=== PATIENT | male | born 1960 | race Caucasian/White ===

== ENCOUNTER 2022-03-12 11:56 | Outpatient (CLI) | payer BC, SELFPAY ==
[2022-03-12 12:26] LABS: Chloride* 104 mmol/L (96-114); Potassium* 4.7 mmol/L (3.6-5.1); Sodium* 140 mmol/L (135-149)
[2022-03-12 12:28] LABS: Carbon Dioxide* 30 mmol/L (20-32); Cholesterol* 157 mg/dL (90-199); Creatinine* 1.4 mg/dL (0.5-1.5); Estimated Glomerular Filt Rate 58 ml/min
[2022-03-12 12:29] LABS: Blood Urea Nitrogen* 21 mg/dL (7-30); Calcium* 9.4 mg/dL (8.4-10.6); Glucose* 91 mg/dL (60-115); HDL Cholesterol* 57 mg/dL (>=40); LDL Cholesterol Calculated 77 mg/dL (<100); Triglycerides* 113 mg/dL (40-149)
== END 2022-03-12 11:57 | disposition home or self-care (01) ==
PROVIDERS: PCP Family Medicine; Visit Provider Internal Medicine
DX: E78.5 Hyperlipidemia, unspecified (principal); I10 Essential (primary) hypertension
CPT/HCPCS: 80048; 80061

== ENCOUNTER 2022-10-27 18:12 | Emergency (ER) | payer BC, SELFPAY ==
[2022-10-27 18:22] VITALS: BP 131/84; PULSE 90; RESP 16; TEMP 36.6; O2SAT 97; BMI 54.2
--- NOTE | 2022-10-27 18:30 | CRLHL7_ITS ---
For Patients: As a result of the Cures Act, medical imaging exams and procedure reports are released immediately into your electronic medical record. You may view this report before your referring provider. If you have questions, please contact your health care provider. Indication: Trauma Technique: Right elbow 3 views Comparison: None Findings: No acute displaced fracture or malalignment. No soft tissue swelling. Joint spaces are maintained. Bony mineralization is age appropriate. Impression: No discrete acute displaced fracture. Dictated by Jaden James MD @ 10/27/2022 7:52:32 PM (Electronically Signed)
--- NOTE | 2022-10-27 18:32 | ED.UPPEXIN ---
HPI - Extremity Injury (Upper) General Chief Complaint: Extremity Pain/Injury, Upper Stated Complaint: R arm injury Time Seen by Provider: 10/27/22 18:14 History of Present Illness HPI narrative: This 61-year-old male comes in with a injury to his right upper extremity. He states that he was ambulating on some stairs at work and misstepped. He was holding onto a railing and states that he twisted his arm and felt a pop near his elbow. He does not report any other injury. He did not fall. He has pain when supinating his right hand and with flexion and extension of his elbow. Related Data Home Medications Medication Instructions Recorded Confirmed biotin 1 mg capsule 1 mg PO DAILY 09/01/21 04/17/22 multivitamin 1 tab PO QAM 09/01/21 04/17/22 piroxicam 20 mg capsule 20 mg PO DAILY 09/01/21 04/17/22 psyllium husk 3.4 gram/5.4 gram 1 tbsp PO ONCE 09/01/21 04/17/22 oral powder (Metamucil) acetaminophen 650 mg 1,300 mg PO Q6H 04/17/22 04/17/22 tablet,extended release ibuprofen 800 mg tablet 800 mg PO TID 04/17/22 04/17/22 Previous Rx's Medication Instructions Recorded bupropion HCl 300 mg 24 hr tablet, 300 mg PO DAILY #90 tabs 04/17/22 extended release celecoxib 200 mg capsule (Celebrex) 200 mg PO QDAY #90 caps 04/17/22 lisinopril 20 1 tab PO DAILY #90 tabs 04/17/22 mg-hydrochlorothiazide 25 mg tablet rosuvastatin 20 mg tablet 20 mg PO DAILY #90 tabs 04/17/22 pantoprazole 40 mg tablet,delayed 40 mg PO DAILY #90 tabs 08/15/22 release peg 3350-electrolytes 236 240 ml PO Q10M #4,000 mL 10/16/22 gram-22.74 gram-6.74 gram-5.86 gram solution (Golytely) Allergies Allergy/AdvReac Type Severity Reaction Status Date / Time No Known Drug Allergies Allergy Verified 04/17/22 15:33 Review of Systems Status of ROS: Reports: 10 or more systems reviewed and unremarkable except as noted in History and below Narrative: Constitutional: No fevers, no weight gain or loss. Eyes: No discharge. No vision changes. HENT: No congestion, no sore throat, no ear pain. Cardiovascular: No chest pain, no palpitations. Respiratory: No shortness of breath, no wheezes, no cough. Gastrointestinal: No abdominal pain, no vomiting, no diarrhea. Genitourinary: No dysuria, no hematuria. Musculoskeletal: Decreased range of motion of the right elbow with tenderness in the anterior aspect. Skin: No rashes, no pruritis. Neurological: No dizziness, weakness, sensory change, speech change. Endo/Heme/Allergies: No bruising or bleeding. No polydipsia. Pysch: no suicidality, no anxiety, no insomnia. All other systems reviewed and are negative. [facility] Surgical History (Updated 04/17/22 @ 15:23 by Re Logan MD) Status post arthroscopy of left knee ?Z98.890 - Other specified postprocedural states (ICD-10) Status post total knee replacement, right ?Z96.651 - Presence of right artificial knee joint (ICD-10) History of vasectomy (05/21/11) ?Z98.52 - Vasectomy status (ICD-10) History of umbilical hernia repair (2005) ?Z98.890 - Other specified postprocedural states (ICD-10) ?Z87.19 - Personal history of other diseases of the digestive system (ICD-10) History of total knee replacement (2017) ?Z96.659 - Presence of unspecified artificial knee joint (ICD-10) Acquired left flat foot (2017) ?M21.42 - Flat foot [pes planus] (acquired), left foot (ICD-10) Social History Smoking Status: Never smoker Non-prescribed substance use: denies use Little interest or pleasure in doing things: not at all Feeling down, depressed, or hopeless: not at all Exam Narrative: Exam Narrative: Constitutional: Well-developed, well-nourished, no acute distress. HEENT: Normocephalic, atraumatic. Neck: Normal range of motion. Nontender. Supple. Heart: Regular. No murmurs. Normal rate. Intact distal pulses. Lungs: Clear to auscultation. No chest discomfort. No wheezes, rhonchi, or rales. Abdomen: Normal bowel sounds. Nontender. No rebound tenderness. Genitalia: Deferred. Back: No midline tenderness. Normal range of motion. Extremities: Decreased range of motion of the right elbow. He has tenderness when palpating along the biceps musculature and tendon. Pain is increased when supinating his forearm. A step-off of the biceps tendon is palpable suggesting rupture. Skin: Intact. No rash. Warm. No erythema or pallor. Neurologic: No altered sensation. No weakness. Alert and oriented. Psychiatric: No suicidality. No anxiety or depression. No insomnia. Nursing notes and vitals signs are reviewed. Const: Vital Signs, click to edit/add: Vital Signs - 24 hr 10/27/22 18:22 Temperature 97.8 F Pulse Rate [Right Pulse Oximeter] 90 Respiratory Rate 16 Blood Pressure [Ri ght Upper Arm] 131/84 Pulse Oximetry 97 Oxygen Delivery Me thod Room Air Course Vital Signs Vital signs: Initial Vital Signs Temperature 97.8 F 10/27/22 18:22 Temperature Source Temporal Artery Scan 10/27/22 18:22 Pulse Rate 90 10/27/22 18:22 Pulse Rhythm Regular 10/27/22 18:22 Respiratory Rate 16 10/27/22 18:22 Blood Pressure 131/84 10/27/22 18:22 Blood Pressure Mean 99 10/27/22 18:22 Blood Pressure Position Sitting 10/27/22 18:22 Pulse Oximetry 97 10/27/22 18:22 Oxygen Delivery Method Room Air 10/27/22 18:22 Vital Signs Temperature 97.8 F 10/27/22 18:22 Pulse Rate 90 10/27/22 18:22 Respiratory Rate 16 10/27/22 18:22 Blood Pressure 131/84 10/27/22 18:22 Pulse Oximetry 97 10/27/22 18:22 Oxygen Delivery Method Room Air 10/27/22 18:22 Temperature 97.8 F 10/27/22 18:22 Pulse Rate 90 10/27/22 18:22 Respiratory Rate 16 10/27/22 18:22 Blood Pressure 131/84 10/27/22 18:22 Pulse Oximetry 97 10/27/22 18:22 Oxygen Delivery Method Room Air 10/27/22 18:22 MDM - Extremity Injury (Upper) MDM Narrative Medical decision making narrative: This patient comes in with elbow injury as described above. This is suspicious for a biceps tendon rupture as he had strain of this muscle and attempting to catch himself as he was holding onto a railing ambulating some steps. He felt a pop in his arm and has a palpable step-off near his elbow where the biceps tendon is located. X-ray imaging is obtained. By my review this shows no sign of fracture or dislocation. This patient was placed in a sling and he received an intramuscular injection of morphine 10 mg. I did speak with the orthopedic physician assistant golf coach precision lens centerer and edger who will give him a phone call for ongoing plans. The patient received prescriptions for Commerce and Toradol. Discharge Plan Discharge Clinical Impression: Biceps tendon rupture Patient Disposition: Home, Self-Care Condition: Unchanged Additional Instructions: Wear sling and use medications as needed and directed. Someone from orthopedic clinic will give a call but in case this does not happen on Saturday, call [phone] arrange follow-up appointment. Prescriptions: No Action biotin 1 mg capsule 1 mg PO DAILY Metamucil 3.4 gram/5.4 gram powder 1 tbsp PO ONCE Rx Instructions: mix into at least 8 oz of water or juice before administering multivitamin Tablet 1 tab PO QAM piroxicam 20 mg capsule 20 mg PO DAILY ibuprofen 800 mg tablet 800 mg PO TID acetaminophen 650 mg tablet extended release 1,300 mg PO Q6H rosuvastatin 20 mg tablet 20 mg PO DAILY Qty: 90 3RF lisinopril-hydrochlorothiazide 20-25 mg tablet 1 tab PO DAILY Qty: 90 3RF bupropion HCl 300 mg tablet extended release 24 hr 300 mg PO DAILY Qty: 90 3RF celecoxib [Celebrex] 200 mg capsule 200 mg PO QDAY Qty: 90 3RF pantoprazole 40 mg tablet,delayed release (DR/EC) 40 mg PO DAILY Qty: 90 2RF peg 3350-electrolytes [Golytely] 236-22.74-6.74 -5.86 gram recon soln 240 ml PO Q10M Qty: 4000 0RF Rx Instructions: until fecal effluent is clear Follow Up/Referrals: Jaden Walker MD [Staff Physician] - Stand Alone Forms: [facility]
--- NOTE | 2022-10-27 18:53 | ED.NURSE ---
Nurse from [facility], Karey Hough, called requesting an update on patient's injury. After receiving verbal consent to share pertinent information, called Karey back at [phone]. It went to voicemail. He had been texting her in the room already.
[2022-10-27] MEDS: MORPHINE 10 MG/ML inj IM (19:42)
[2022-10-27 19:56] VITALS: BP 130/85; PULSE 78; RESP 16; TEMP 36.4; O2SAT 95
== END 2022-10-27 19:57 | disposition home or self-care (01) ==
PROVIDERS: Emergency Provider Emergency Medicine Emergency Medical Services; PCP Internal Medicine
DX: S46.211A Strain of muscle, fascia and tendon of other parts of biceps, right arm, initial encounter (principal); W10.9XXA Fall (on) (from) unspecified stairs and steps, initial encounter
CPT/HCPCS: 73080; 96372; 99284; J2270

== ENCOUNTER 2022-11-16 09:41 | Outpatient (CLI) | payer BC, SELFPAY ==
--- NOTE | 2022-11-16 10:36 | W.ANESCHARGE ---
Anesthesia Charges Start Date/Time Anesthesia Start Date: 11/16/22 Anesthesia Start Time: 10:55 Stop Date/Time Anesthesia Stop Date: 11/16/22 Anesthesia Stop Time: 11:18
--- NOTE | 2022-11-16 11:21 | W.ANESCHARGE ---
Anesthesia Charges Start Date/Time Anesthesia Start Date: 11/16/22 Anesthesia Start Time: 10:55 Stop Date/Time Anesthesia Stop Date: 11/16/22 Anesthesia Stop Time: 11:18
== END 2022-11-16 09:42 | disposition home or self-care (01) ==
LOC: OP CLINIC 09:42
PROVIDERS: PCP Internal Medicine; Visit Provider Internal Medicine
DX: R19.5 Other fecal abnormalities (principal); K57.30 Diverticulosis of large intestine without perforation or abscess without bleeding
CPT/HCPCS: 00811; 00812; 45378; J2704

== ENCOUNTER 2022-11-19 09:01 | Outpatient (CLI) | payer BC, SELFPAY ==
--- NOTE | 2022-11-19 09:15 | MR_ITS ---
[address] [address] Phone:?[phone] Fax:?[phone] Referring Physician Information: Sebas Umanzor [address] [facility] [address] Phone:?[phone] Fax:?[phone] Patient:?Jaden Tejeda D.O.B:?1960 Sex:?Male Phone:?[phone] [facility] MRN:?[id number] Exam Date:?11/19/2022 EXAM: MRI EXAMINATION OF THE RIGHT ELBOW CLINICAL INFORMATION: Status post fall with injury. Right elbow pain. Evaluate distal biceps injury. TECHNICAL INFORMATION: Axial, sagittal and coronal PD and T2. Coronal T1 and STIR images acquired. No prior studies for comparison. INTERPRETATION: Bones, joint and osteochondral surfaces: There is a tiny elbow joint effusion. No discrete loose body is seen. No evidence for an occult fracture or osseous contusion. No discrete osteochondral lesion is seen. No other abnormal marrow edema pattern identified. Tendons: There is an acute or subacute appearance of injury and complete disruption of the expected biceps brachii tendon insertion. Tendon retraction is measuring approximately 2.5 cm. The torn tendon fibers are situated distal to the level of the elbow joint line. Moderate associated soft tissue fluid and edema signal. The common flexor origin at the medial humeral epicondyle is intact. Tendinopathy involves the common extensor tendon origin with low to moderate grade deep fiber partial tearing involving the central one third of the tendon origin. Ligaments: The ulnar collateral ligament is intact without evidence of acute sprain or tear. The radial collateral and lateral ulnar collateral ligaments appear grossly intact. Nerves: The ulnar nerve appears unremarkable coursing past the elbow and through the cubital tunnel. CONCLUSION: 1. Acute or subacute injury with complete disruption of the expected biceps brachii tendon insertion. Retraction measures approximately 2.5 cm, with torn tendon fibers remaining situated distal to the level of the elbow joint line. Moderate associated soft tissue hemorrhage and inflammation. 2. Tendinopathy involves the common extensor tendon origin. Low to moderate grade deep fiber partial-thickness tear involves the central one third of the tendon origin. 3. No occult fracture, osseous contusion or osteochondral lesion. 4. There is a tiny elbow joint effusion. KES Electronically signed on 11/19/2022 1:51:00 PM by Nioks Ahumada M.D.
== END 2022-11-19 09:02 | disposition home or self-care (01) ==
PROVIDERS: PCP Internal Medicine; Visit Provider Physician Assistant
DX: M25.521 Pain in right elbow (principal); M25.421 Effusion, right elbow
CPT/HCPCS: 73221

== ENCOUNTER 2022-11-26 15:08 | Outpatient (CLI) | payer BC, SELFPAY | END 2022-11-26 15:09 | disposition home or self-care (01) | LOC: NFLDREF 15:08 | PROVIDERS: PCP Internal Medicine; Visit Provider Internal Medicine | DX: Z01.818 Encounter for other preprocedural examination (principal); I10 Essential (primary) hypertension | CPT/HCPCS: 80048 ==

== ENCOUNTER 2022-12-04 08:01 | Day surgery (SDC) | payer BC, SELFPAY ==
[2022-12-04] VITALS (13 sets, daily range): BP systolic 112–172; BP diastolic 58–85; PULSE 70–81; RESP 16–20; TEMP 36.4–36.6; O2SAT 92–98; BMI 53.5
[2022-12-04] MEDS: OXYCODONE (CR) 10 MG TAB.ER.12H PO (08:20)
[2022-12-04] MEDS: ACETAMINOPHEN 500 MG TABLET 1000 MG PO (08:20)
[2022-12-04] MEDS: CELECOXIB 200 MG CAPSULE PO (08:20)
[2022-12-04] MEDS: LACTATED RINGERS 1000 ML 1,000 ML 100 ML IV ×2 (08:30→10:19)
[2022-12-04] MEDS: SODIUM CHLORIDE 0.9 % (FLUSH) 10 ML SYRINGE IVF (08:30)
[2022-12-04] MEDS: MIDAZOLAM HCL 1 MG/ML inj IVP (08:55)
[2022-12-04] MEDS: fentaNYL 100 MCG/2 ML inj IVP (08:55)
--- NOTE | 2022-12-04 09:07 | SUR.PREOP ---
TIME?OUT:?0855 PT/José Miguel MARAVILLA RN/Cristiano CONDE MDA?VERIFICATION?OF?SURGICAL?SITE,?PROCEDURE,?AND?CONSENT OBTAINED?PRIOR?TO?INVASIVE?PROCEDURE.
[2022-12-04] MEDS: CEFAZOLIN 1 GM inj 3 GM IVP (09:36)
--- NOTE | 2022-12-04 09:53 | CRLHL7_ITS ---
For Patients: As a result of the Cures Act, medical imaging exams and procedure reports are released immediately into your electronic medical record. You may view this report before your referring provider. If you have questions, please contact your health care provider. Indication: INTRA OP BUTTON PLACEMENT EXAM Technique: Two fluoroscopic images of the right elbow. Fluoroscopic time 2.3 seconds. IMPRESSION: Fluoroscopic guidance for biceps tendon repair. Dictated by Jaden Zhang MD @ 12/04/2022 11:10:25 AM (Electronically Signed)
--- NOTE | 2022-12-04 10:25 | P.NB_ITS ---
Nerve Block Nerve Block Time Seen by Provider: 09:00 Date Seen: 12/04/22 Type of block requested by surgeon for post-operative analgesia: axillary Side: right Time out performed: Yes Verification of patient name: Yes Verification of date of : Yes Site marking: site marked Name of person performing procedure: Joseph Continuous monitoring Was continuous monitoring of O2 sat, B/P, monitoring manager, recorded every 15 minutes?: Yes Procedure Checklist: sterile prep, needles and gloves Ultrasound guided. Images saved: Yes Medications given in 5ml increments after negative aspiration: Ropivicaine %: 0.5 mL: 30 Needle gauge: 22 Decadron (mg): 10 Patient tolerated procedure well: Yes Additional comments: Needle noted adjacent to nerve Block Charges Block Charge (with Pro Fee): Brachial Plexus Use of Ultrasound Machine for Block: Yes- US Guidance/pain block
--- NOTE | 2022-12-04 10:26 | W.ANESCHARGE ---
Anesthesia Charges Start Date/Time Anesthesia Start Date: 12/04/22 Anesthesia Start Time: 09:08 Stop Date/Time Anesthesia Stop Date: 12/04/22 Anesthesia Stop Time: 11:03
--- NOTE | 2022-12-04 10:40 | PM.ORPRC ---
Procedure Note Date of procedure: 12/04/22 Procedure: PREOPERATIVE DIAGNOSIS: Right upper extremity distal biceps tendon tear POSTOPERATIVE DIAGNOSIS: Right upper extremity distal biceps tendon tear NAME OF OPERATION: Primary Repair SURGEON: Hayder Alves MD QUALITY CONTROL ASSISTANT: Fozia Kowalski PA-C ANESTHESIA: General endotracheal ESTIMATED BLOOD LOSS: 5 mL. COMPLICATIONS: None. SPECIMENS: None. DRAINS: None. PREOPERATIVE ANTIBIOTICS: Ancef 3 grams INDICATIONS: The patient is a 62-year-old male with a history of a right elbow injury, sustaining full-thickness disruption of the distal biceps tendon. Operative intervention was recommended. The risks, benefits and expected outcomes were discussed in detail. These included but were not limited to: Infection, bleeding, injury to blood vessel or nerve, venous thromboembolism. All questions were answered to their satisfaction. Use of an physicians assistant was necessary throughout the case for patient positioning and safety, soft tissue retraction and closure. PROCEDURE: General anesthesia was administered. The patient was placed supine on the operating room table. The right upper extremity was prepped and draped in the usual sterile fashion. The limb was exsanguinated with the Keshawn bandage. The pneumatic tourniquet was inflated to 250 mm of mercury. A transverse incision was made 4 cm distal to the antecubital crease. Subcutaneous dissection was taken with tenotomy scissors to the antecubital veins which were carefully preserved throughout the case. The lateral antebrachial cutaneous nerve was not seen during the case. There was a tube of peritenon which was intact all the way down to the radial tuberosity. This was followed down to the radial tuberosity. It was resected off of the insertion. The Lempert rongeur and the joker elevator were used to debride the radial tuberosity. Dissection was carried proximally, to the biceps tendon. We debrided the distal end of biceps tendon and placed a whipstitch with #2 FiberWire suture. The forearm was placed in maximum supination. We drilled a bicortical guide pin through the radial tuberosity. We drilled a 10 mm unicortical socket. We placed the button on the limbs of the whipstitch and advanced it into the socket through the deep guide pin hole and flipped it on the far cortex of proximal radius. Its placement was confirmed with the image intensifier. We kept the forearm in maximum supination and flexed the elbow while retracting the limbs of the suture. This advanced the distal biceps tendon into the socket to a depth of 10 mm. We placed 1 limb of the suture through the tendon and tied several knots over the top of the tendon. We placed an 7 mm x 10 mm peek interference screw over the radial side of the tendon, pushing it ulnarly. We tied several knots over the top of the screw. This provides an excellent repair of the distal biceps tendon to its anatomic insertion. The wound was irrigated with normal saline. The wound was infiltrated with 0.25% Marcaine without epinephrine. Subcutaneous tissues were closed with a 2-0 Vicryl. Skin was closed with a 3-0 Monocryl in a subcuticular fashion. A dry dressing and sling were applied. Sponge and needle counts were correct x2. The patient tolerated the procedure well. There were no apparent complications. They were carefully transferred to the hospital bed and taken to the postanesthesia care unit in satisfactory condition. PLAN: The patient will be discharged to home. They will follow up in the office next week for a wound check and an AP and lateral view of the elbow, prior to being seen, in preparation for occupational therapy. We will begin gentle active range of motion immediately.
--- NOTE | 2022-12-04 11:09 | W.ANESCHARGE ---
Anesthesia Charges Start Date/Time Anesthesia Start Date: 12/04/22 Anesthesia Start Time: 09:08 Stop Date/Time Anesthesia Stop Date: 12/04/22 Anesthesia Stop Time: 11:03
--- NOTE | 2022-12-04 11:32 | SUR.PHASEI ---
patient met discharge criteria per anesthesia
== END 2022-12-04 12:20 | disposition home or self-care (01) ==
PROVIDERS: PCP Internal Medicine; Visit Provider Orthopaedic Surgery
PROC: (CPT 24341; principal; 2022-12-04 09:15)
DX: S46.211A Strain of muscle, fascia and tendon of other parts of biceps, right arm, initial encounter (principal); G89.18 Other acute postprocedural pain
CPT/HCPCS: 24341; 01716; 64415; 73070; 76000; 76942; A4580; A9270; C1713; J0330; J0690; J1100; J2250; J2371; J2405; J2704; J2795; J3010; J3490; J7120

== ENCOUNTER 2023-02-27 08:30 | Outpatient (RCR) | payer BC, SELFPAY ==
--- NOTE | 2022-12-17 16:11 | OT.OPOE ---
OT Outpatient Ortho Eval OT Outpatient Ortho Eval* Start: 12/17/22 08:05 Freq: Status: Active Protocol: Document 12/17/22 08:10 JC (Rec: 12/17/22 16:09 JC [id number]) E-signed By Lorna Garcia, OTR/L, CLT OT OP Ortho Eval Details Complexity Complexity Low Insurance Information Insurance Information Workman's Comp Outpatient History/Precautions Current Condition/Medical Diagnosis Referring Provider Gale Hernandez PA-C Treatment Diagnosis Pain in R arm, Muscle Weakness Date of Onset DOI 10/27/22 and Surgery Precautions Lifting Restrictions Other Precautions He can continue active range of motion of the right elbow. He will see Dr. Alves at 6 weeks post surgery (apt was made for 2022). No strengthening or lifting right upper extremity. He will remain off work, for he cannot go back to work until he is fully functioning. 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 OT Problems Problems Problems Decreased Strength,Decreased Range of Motion,Pain,Lifting, Gripping Other Problems Writing,Opening Containers, Dressing,Computer,Fasteners Patient Potential Excellent Assessment Assessment Assessment 62 year old male had a fall in a staircase at work resulting in a ruptured R distal biceps tendon, repaired on 12/04/22 . He had his 1 week post-op f/ u apt with the PA on 12/12/22 and was given orders to start OT and work on pain management and AROM. He has discomfort and thickening over the anterior elbow area near the incision. He feels numbness over the dorsum of the wrist since his nerve block in surgery-this is improving. At this point, arm sling is for comfort and patient is no longer wearing it when at home (lives alone in an apt). Injured/post surgical R elbow 10-115 degrees (ex-flexion), supination 60 degrees and full pronation and L elbow 2-130 degrees with supination 80 degrees and full pronation. Occupational Therapy Treatment Plan - OP Potential Rehabilitation Potential Excellent Barriers Barriers to goal attainment NONE Set Goals Goals Set with Patient Yes Goals Goals 1. Through activity participation in skilled therapy sessions, and consistency in performing a customized HEP, patient will improve capacity of tendons and muscles to manage load in order to have less pain with ADLs, work, leisure activities and IADLs. 2. Patient will be Indep with his HEP and participate in program daily for a minimum of 15 mins 3. Patient was demonstrated improved AROM at the elbow: ( EVAL Injured/post surgical R elbow 10-115 degrees (ex- flexion), supination 60 degrees and full pronation and L elbow 2-130 degrees with supination 80 degrees and full pronation). 3. Therapist will follow ORTHO restrictions and program and advance patient's HEP as provider updates precautions/ motion and restrictions are lifted Target Date 8 weeks Treatment Plan Treatment Plan Evaluation,Edema Control,Joint Mobilization,Manual Therapy, Ultrasound,Therapeutic Exercise,Education Expected Frequency 1-2x Week Expected Duration 6-8 Weeks Home Program Home Program Home Program Initiated Home Program Specifics Access Code: [email or web address] URL: [email or web address] Date: 12/17/2022 Prepared by: Lorna Garcia Exercises - Seated Elbow Flexion and Extension AROM - 1 x daily - 7 x weekly - 3 sets - 10 reps - Seated Forearm Pronation and Supination AROM - 1 x daily - 7 x weekly - 3 sets - 10 reps - Seated Scapular Retraction - 1 x daily - 7 x weekly - 3 sets - 10 reps - Wrist AROM Flexion Extension - 1 x daily - 7 x weekly - 3 sets - 10 reps - Supine Elbow Extension Stretch in Pronation - 1 x daily - 7 x weekly - 3 sets - 10 reps Certification Certification I Certify That: Therapy Services Provided, Therapy Plan Established, Therapy Plan Reviewed Recertification Information Recertification Information Initial Certification Date 12/17/22 Recertification Due Date 03/17/23 Provider Signature Shows Agreement With POC & Medical Necessity Physician Comment/Change Comment or Changes Physician NPI Number #
== END 2023-04-04 10:54 | disposition home or self-care (01) ==
PROVIDERS: PCP Internal Medicine; Visit Provider Physician Assistant
DX: Z98.890 Other specified postprocedural states (principal); M79.601 Pain in right arm; M62.81 Muscle weakness (generalized); Z51.89 Encounter for other specified aftercare
CPT/HCPCS: 97110; 97140; 97165; X5282

== ENCOUNTER 2023-10-01 09:01 | Outpatient (CLI) | payer BC, SELFPAY ==
--- OUTSIDE RECORDS SUMMARY | 2023-10-01 15:05 | XMS_ITS ---
Author Organization [facility] Address [address] [place] [address] Care Team Providers Care Senior Peoplesoft Developer Name Role Phone Unavailable Unavailable Unavailable Surgery Details Not on file Complications Check Surgery Details section. Procedure Estimated Blood Loss Check Surgery Details section. Procedure Findings Check Surgery Details section. Procedure Specimens Taken Check Surgery Details section.
--- OUTSIDE RECORDS SUMMARY | 2023-10-01 15:05 | XMS_ITS | Clinical Summary ---
Author Organization [facility] Address [address] [place] [address] Care Team Providers Care Power Switchboard Operator Name Role Phone Unavailable Primary Care Provider Unavailabl e Source Comments Patient records contain information from all sites at [facility]. For routine questions regarding patient records, call [phone] during business hours, M-F 8:00 AM - 5:00 PM Central Time. Record requests for emergency care only can be directed to [phone] at any time.[facility] Immunizations Name Administration Dates Next Due Tdap 07/06/2008 Social History Tobacco Use Types Packs/Day Years Used Date Smoking Tobacco: Never Assessed Nutrition Answer Date Recorded Nutrition: EVOO Fat Source Unknown 04/19 Nutrition: Servings of Fruits/Vegetables per Day Not on file 04/19/2022 Dental Answer Date Recorded Dental: Regular Dentist Unknown 04/20/19 23 Sex and Gender Information Value Date Recorded Sex Assigned at Male 05/09/2022 2:03 PM CDT Gender Identity Male 05/09/2022 2:03 PM CDT Sexual Orientation Straight 05/09/2022 2: 03 PM CDT Plan of Treatment Health Maintenance Due Date Last Done Comments CT Colonography 1961 Cologuard 1961 Colonoscopy 1961 Colorectal Cancer Screening 1961 FIT 1961 Fasting Glucose for Diabetes Screening 1961 HIV Screening 1961 Hepatitis C Screening 1961 Lipid (Cholesterol) Screening 1961 COVID-19 Vaccine ( season) 2022 01/24/2021, 07/28/2020, 06/30/2020 Depression Screening (Annual PHQ-2) 02/11/2023 Influenza Vaccine (#1) 2023 3, 11/21/2021, 11/25/2020, Additional history exists DTaP,Tdap,and Td Vaccines (4 - Td or Tdap) 04/17/2032 04/17/2022, 05/21/2011, 07/06/2008 Zoster Vaccines Completed 06/26/2019, 01/27/2019 Pneumococcal vaccine (0-64 years) Aged Out No longer eligible based on patient's age to complete this topic
--- OUTSIDE RECORDS SUMMARY | 2023-10-01 15:05 | XMS_ITS | Clinical Summary ---
Author Organization [facility] [facility] Address [place], [place] [address] Care Team Providers Care Drop Press Hand Name Role Phone Re Logan MD Primary Care Provider [phone] Allergies No known active allergies Medications Medication Sig Dispensed Refills Start Date End Date Status OM-3/E/LINOL/ALA/OL EIC/GLA/LIP (OMEGA 3-6-9 ORAL) Take 1 Cap by mouth 3 times daily. 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 Active lactobacillus rhamnosus, GG, (PROBIOTIC) 10 billion cell capsule Take 1 capsule by mouth once daily. Active MULTIVITS-MINERALS/ FA/LYCOPENE (MEN'S DAILY ORAL) Take 1 Tab by mouth once daily. MVI, multimineral Active aspirin enteric coated (ECOTRIN) 325 mg tabletIndications:L eft facial numbness Take 1 tablet by mouth once daily with a meal. 1 tablet 0 07/09/2015 Active GLUC/CHND/OM3/DHA/E PA/FISH/STR (GLUCOSAMINE CHONDROITIN PLUS ORAL) Take by mouth. Active Active Problems Problem Noted Date Diagnosed Date Other and unspecified general psychiatric examin ation 07/29/2012 Obesity 07/23/2012 Hyperlipidemia 07/23/2012 NNEKA (obstructive sleep apnea) 07/23/2012 Osteoarthritis 07/23/2012 Family History Medical History Relation Name Comments Good Health Brother 1 44 Good Health Brother 2 38 (half brothe r) Heart Disease Father 73 CAD/DC at 6 5 Good Health Mother 73 Good Health Sister 55 Relation Name Status Comments Brother 1 Brother 2 Father Mother Sister Social History Tobacco Use Types Packs/Day Years Used Date Smoking Tobacco: Never Smokeless Tobacco: Never Tobacco Cessation:Counseling Given: Yes Alcohol Use Standard Drinks/Week Comments No 0 (1 standard drink = 0.6 oz pur e alcohol) rare Sex and Gender Information Value Date Recorded Sex Assigned at Not on file Gender Identity Not on file Sexual Orientation Not on file Obstetrics History Last Filed Vital Signs Vital Sign Reading Time Taken Comments Blood Pressure 144/93 07/20/2015 9:55 AM CDT Pulse 76 07/20/2015 9:55 AM CDT Temperature 37.3 ??C (99.1 ??F) 07/20/2015 9:55 AM CD T Respiratory Rate 18 07/20/2015 9:55 AM CDT Oxygen Saturation 97% 07/20/2015 9:55 AM CDT Inhaled Oxygen Concentration - - Weight 167.9 kg (370 lb 2.4 oz) 07/20/2015 9:55 AM CDT Height 185.4 cm (6' 1) 07/20/2015 9:55 AM CDT Body Mass Index 48.84 07/20/2015 9:55 AM CDT Plan of Treatment Health Maintenance Due Date Last Done Comments Tdap 1972 Depression screening for age 12+ 1973 Tetanus booster 1981 Colonoscopy through age 75 2006 Zoster (shingles) series for age 50+ (1 of 2) 11/13/2011 BMI (ht and wt on same day) for age 18+ 07/19/2016 07/20/2015, 07/09/2015 Lipids for age 45-75 06/20/2017 06/20/2012, 06/20/2012, 06/20/2012 COVID-19 vaccine series (2022-24 season) 2022 Influenza for age 50-64 10/13/2023 HIV for age 15-65 Completed 06/20/2012 Hepatitis C screening for ag e 18-79 Completed 06/20/2012 Pneumococcal series for age 6-64 Aged Out No longer eligible b ased on patient's age to complete this topic Procedures Procedure Name Priority Date/Time Associated Diagnosis Comments ANTI HIV 1/2 Timed 06/20/2012 9:30 AM CDT Kidney donor ANTI HCV Timed 06/20/2012 9:30 AM CDT Kidney donor CHOLESTEROL,TOTAL Timed 06/20/2012 9:3 0 AM CDT Kidney donor from Last 3 Months or Most Recently Relevant to Health Maintenance Results * ANTI HCV (06/20/2012 9:30 AM CDT) ANTI HCV Non-reacti ve [facility] Blood specimen (specimen) BLOOD SPECIMEN / Unknown 06/20/2012 9:30 AM CDT 06/20/2012 9:10 AM CDT Jose F Cardozo MD SEND OUTS [facility] [place]NAL ZIP [id number] [place] [phone] * (ABNORMAL) CHOLESTEROL,TOTAL (06/20/2012 9:30 AM CDT) CHOLESTEROL,TO LM 212(H) 100 - 199 mg/dL [facility] Blood specimen (specimen) BLOOD SPECIMEN / Unknown 06/20/2012 9:30 AM CDT 06/20/2012 9:10 AM CDT Jose F Cardozo MD CHEMISTRY [facility] INTERNAL ZIP [id number] [place] [phone] * ANTI HIV 1/2 (06/20/2012 9:30 AM CDT) ANTI HIV 1/2 Non-reacti ve [facility] Blood specimen (specimen) BLOOD SPECIMEN / Unknown 06/20/2012 9:30 AM CDT 06/20/2012 9:10 AM CDT Jose F Cardozo MD SEND OUTS [facility] INTERNAL ZIP [id number] [place] [phone] from Last 3 Months or Most Recently Relevant to Health Maintenance Care Teams Drop Press Hand Relationship Specialty Start Date End Date Re Logan MD PCP - General Internal Medicine 05/21/12
--- OUTSIDE RECORDS SUMMARY | 2023-10-01 15:05 | XMS_ITS | Referral Summary ---
Author Organization [facility] Address [address] [place] [address] Care Team Providers Care Associate Justice Name Role Phone Unavailable Primary Care Provider Unavailabl e Source Comments Patient records contain information from all sites at [facility]. For routine questions regarding patient records, call [phone] during business hours, M-F 8:00 AM - 5:00 PM Central Time. Record requests for emergency care only can be directed to [phone] at any time.[facility] Immunizations Name Administration Dates Next Due Tdap [...] 2: 03 PM CDT Plan of Treatment Not on file
== END 2023-10-01 09:02 | disposition home or self-care (01) ==
PROVIDERS: PCP Internal Medicine; Visit Provider Internal Medicine
DX: I10 Essential (primary) hypertension (principal); E78.5 Hyperlipidemia, unspecified; E66.01 Morbid (severe) obesity due to excess calories
CPT/HCPCS: 80053; 80061

== ENCOUNTER 2025-02-02 14:56 | Outpatient (CLI) | payer BC, SELFPAY | END 2025-02-02 14:57 | disposition home or self-care (01) | PROVIDERS: PCP Internal Medicine; Visit Provider Internal Medicine | DX: E78.5 Hyperlipidemia, unspecified (principal); I10 Essential (primary) hypertension; Z12.5 Encounter for screening for malignant neoplasm of prostate | CPT/HCPCS: 80048; 80061; G0103 ==